=== PATIENT | female | born 1935 | race African-American/Black ===

== ENCOUNTER 2018-11-20 19:17 | Emergency (ER) | payer BC, MEDICARE ==
[~2018-11-20] VITALS: Ht 162.6 cm; Wt 54.0 kg
[~2018-11-20 19:17] MED LIST: HYDROCHLOROTHIAZIDE PO; KLUD20 PO; LEVO500T2 PO; LISINOPRIL; OMEP20CA4 PO; TRAM50TA3 PO; VITAMIN D PO
[2018-11-20] MEDS ORDERED: MAGNESIUM/ALUMINUM HYDROXIDE/SIMETHICONE 30ML UDC PO STA (21:07)
[2018-11-20] MEDS ORDERED: FAMOTIDINE 20MG/2ML VIAL IV STA (21:07)
[2018-11-20 21:52] LABS: BASOPHILS % 0.5 % (0.0-2.0); CHLORIDE 98 mEq/L (98-107); EOSINOPHILS % 0.1 % (0.0-5.0); HEMATOCRIT. 38.8 % (36.0-48.0); HEMOGLOBIN. 12.6 g/dL (12.0-16.0); LYMPHOCYTES % 17.4 % (20.0-50.0); MEAN CORPUSCULAR HEMOGLOBIN 25.6 pg (28.0-32.0); MEAN CORPUSCULAR VOLUME 78.6 fL (81.0-99.0); MEAN PLATELET VOLUME 10.4 fl (7.4-10.4); PLATELET 178 x1000/uL (130-400); RED BLOOD CELL COUNT 4.94 mill/uL (4.2-5.4); RED CELL DISTRIBUTION WIDTH 14.3 % (11.6-14.6)
[2018-11-20 21:54] LABS: INR 1.1; PROTHROMBIN TIME 11.6 sec (9.6-11.0)
[2018-11-20 22:03] LABS: CLARITY URINE CLEAR (CLEAR); COLOR URINE YELLOW (YELLOW); KETONES URINE 2+ (NEGATIVE); LEUKOCYTE ESTERASE URINE 2+ (NEGATIVE); NITRITE URINE NEGATIVE (NEGATIVE); OCCULT BLOOD URINE TRACE (NEGATIVE); PROTEIN URINE TRACE (NEGATIVE); SPECIFIC GRAVITY URINE 1.017 (1.005-1.030); UROBILINOGEN URINE 0.2 E.U./dL (0.2-1.0)
[2018-11-21 01:05] VITALS: BP 144/72
== END 2018-11-21 01:09 | disposition home or self-care (01) ==
LOC: ER 19:17 → CANBEDREQ 11-21 02:40
DX: R10.13 Epigastric pain (principal); R11.10 Vomiting, unspecified; I10 Essential (primary) hypertension; Z98.890 Other specified postprocedural states; Z79.899 Other long term (current) drug therapy
CPT/HCPCS: 36415; 71045; 74176; 80053; 81003; 83690; 84484; 85025; 85610; 86850; 86900; 86901; 93005; 96374; 99284; J3490

== ENCOUNTER 2021-01-23 20:39 | Emergency (ER) | payer BC ==
[~2021-01-23] VITALS: Ht 162.6 cm; Wt 45.0 kg
[~2021-01-23 20:39] MED LIST changes: -KLUD20 PO; +POTA20LI52 PO
[2021-01-23 23:08] LABS: CHLORIDE 102 mEq/L (98-107)
[2021-01-23 23:47] LABS: BASOPHILS % 0.7 % (0.0-2.0); EOSINOPHILS % 0.3 % (0.0-5.0); HEMATOCRIT. 34.8 % (36.0-48.0); HEMOGLOBIN. 11.5 g/dL (12.0-16.0); MEAN CORPUSCULAR HEMOGLOBIN 25.5 pg (28.0-32.0); MEAN CORPUSCULAR VOLUME 77.4 fL (81.0-99.0); MEAN PLATELET VOLUME 9.9 fl (7.4-10.4); MONOCYTES % 8.7 % (2.0-8.0); NEUTROPHILS % 75.3 % (40.0-76.0); PLATELET 236 x1000/uL (130-400); RED CELL DISTRIBUTION WIDTH 14.3 % (11.6-14.6)
[2021-01-24 00:44] LABS: CLARITY URINE CLEAR (CLEAR); COLOR URINE DARK YELLOW (YELLOW); KETONES URINE 1+ (NEGATIVE); LEUKOCYTE ESTERASE URINE NEGATIVE (NEGATIVE); NITRITE URINE NEGATIVE (NEGATIVE); OCCULT BLOOD URINE NEGATIVE (NEGATIVE); PROTEIN URINE NEGATIVE (NEGATIVE); SPECIFIC GRAVITY URINE 1.022 (1.005-1.030)
[2021-01-24] MEDS ORDERED: ACETAMINOPHEN 325MG TABLET PO ONE (01:15)
[2021-01-24] MEDS ORDERED: ACET650T37 MT (04:02)
[2021-01-24 04:15] VITALS: BP 114/63
[2021-01-24] MEDS ORDERED: ONDA4TAB5 MT (04:19)
== END 2021-01-24 04:40 | disposition home or self-care (01) ==
LOC: ER 23:57
DX: R10.9 Unspecified abdominal pain (principal); I10 Essential (primary) hypertension
CPT/HCPCS: 36415; 76705; 80053; 81003; 85025; 99284

== ENCOUNTER 2021-05-24 20:48 | Emergency (ER) | payer BC, MEDICARE ==
[~2021-05-24] VITALS: Ht 167.6 cm; Wt 45.0 kg
[~2021-05-24 20:48] MED LIST changes: +ACET650T37 MT; -LEVO500T2 PO; +ONDA4TAB5 MT
[2021-05-25] MEDS ORDERED: MORPHINE SULFATE 4 MG/ML CPJ (NOT FOR IM USE) IV STA (00:51)
[2021-05-25] MEDS ORDERED: ONDANSETRON HCL 4MG/2ML INJ IV STA (00:51)
[2021-05-25] MEDS ORDERED: SODIUM CHLORIDE 0.9% 1,000 ML IV ONE (01:00)
[2021-05-25 01:25] LABS: BASOPHILS % 0.8 % (0.0-2.0); EOSINOPHILS % 0.2 % (0.0-5.0); HEMATOCRIT. 31.1 % (36.0-48.0); LYMPHOCYTES % 7.9 % (20.0-50.0); MEAN CORPUSCULAR VOLUME 71.9 fL (81.0-99.0); MEAN PLATELET VOLUME 9.3 fl (7.4-10.4); MONOCYTES % 3.1 % (2.0-8.0); PLATELET 307 x1000/uL (130-400); RED BLOOD CELL COUNT 4.33 mill/uL (4.2-5.4); RED CELL DISTRIBUTION WIDTH 17.1 % (11.6-14.6)
[2021-05-25 01:29] LABS: CHLORIDE 104 mEq/L (98-107)
[2021-05-25] MEDS ORDERED: MORPHINE SULFATE 2 MG/ML CPJ (NOT FOR IM USE) IV SCH (01:30)
[2021-05-25] MEDS ORDERED: IOHEXOL-300 100 ML BOTTLE ONE (04:06)
[2021-05-25 06:08] VITALS: BP 168/85
== END 2021-05-25 06:24 | disposition home or self-care (01) ==
LOC: ER 20:48
DX: R10.9 Unspecified abdominal pain (principal); I10 Essential (primary) hypertension; Z98.890 Other specified postprocedural states
CPT/HCPCS: 36415; 71045; 74177; 80053; 83605; 83690; 85025; 96361; 96374; 96375; 99291; J2270; J2405; J7030; Q9967

== ENCOUNTER 2021-11-19 11:37 | Inpatient (IN) | payer BC ==
[~2021-11-19] VITALS: Ht 167.6 cm; Wt 49.9 kg
[2021-11-19 06:30] VITALS: BP 150/93
[~2021-11-19 11:37] MED LIST changes: +LEVO500T89 MT
[2021-11-19 12:48] LABS: CHLORIDE 109 mEq/L (98-107)
[2021-11-19 12:57] LABS: INR 1.1; PROTHROMBIN TIME 11.8 sec (9.6-11.0)
[2021-11-19 13:00] LABS: BASOPHILS % 1.1 % (0.0-2.0); EOSINOPHILS % 2.8 % (0.0-5.0); LYMPHOCYTES % 11.2 % (20.0-50.0); MEAN CORPUSCULAR HEMOGLOBIN 16.4 pg (28.0-32.0); MEAN CORPUSCULAR VOLUME 57.8 fL (81.0-99.0); MONOCYTES % 13.4 % (2.0-8.0); NEUTROPHILS % 71.5 % (40.0-76.0); PLATELET 386 x1000/uL (130-400); RED BLOOD CELL COUNT 3.79 mill/uL (4.2-5.4); RED CELL DISTRIBUTION WIDTH 23.6 % (11.6-14.6)
[2021-11-19 13:02] LABS: HEMOGLOBIN. 6.2 g/dL (12.0-16.0)
[2021-11-19 13:03] LABS: HEMATOCRIT. 21.9 % (36.0-48.0)
[2021-11-19 13:17] LABS: PLATELET ESTIMATE NORMAL
[2021-11-19] MEDS ORDERED: HYDROCODONE/ACETAMINOPHEN 5/325MG TABLET PO PRN (19:15)
[2021-11-19] MEDS ORDERED: LORAZEPAM 0.5MG TABLET PO PRN (19:15)
[2021-11-19] MEDS ORDERED: IPRATROPIUM/ALBUTEROL 0.5-3(2.5)MG/3ML NEB HHN PRN (19:15)
[2021-11-19] MEDS ORDERED: ONDANSETRON HCL 4MG/2ML INJ IV PRN (19:15)
[2021-11-19] MEDS ORDERED: DOCUSATE SODIUM 100MG CAPSULE PO PRN (19:15)
[2021-11-19] MEDS ORDERED: CLONIDINE 0.1MG TABLET PO PRN (19:15)
[2021-11-19] MEDS ORDERED: ACETAMINOPHEN 325MG TABLET PO PRN ×2 (19:15)
[2021-11-19 20:00] VITALS: BP 147/72
[2021-11-19 20:00] LABS: TOTAL IRON BINDING CAPACITY 391 ug/dL (250-450)
[2021-11-19 20:17] LABS: FOLIC ACID (FOLATE) SERUM > 20.00 ng/mL (>5.38)
[2021-11-19 20:19] LABS: FERRITIN 6 ng/mL (10-291)
[2021-11-19 20:24] LABS: VITAMIN B12 SERUM 471 pg/mL (211-911)
[2021-11-20] VITALS: BP 139/77
[2021-11-20 04:00] VITALS: BP 141/72
[2021-11-20 07:11] LABS: BASOPHILS % 0.7 % (0.0-2.0); EOSINOPHILS % 3.4 % (0.0-5.0); HEMATOCRIT. 27.1 % (36.0-48.0); LYMPHOCYTES % 23.8 % (20.0-50.0); MEAN CORPUSCULAR HEMOGLOBIN 17.8 pg (28.0-32.0); MEAN CORPUSCULAR VOLUME 60.6 fL (81.0-99.0); MEAN PLATELET VOLUME 9.3 fl (7.4-10.4); MONOCYTES % 12.8 % (2.0-8.0); NEUTROPHILS % 59.3 % (40.0-76.0); PLATELET 348 x1000/uL (130-400); RED BLOOD CELL COUNT 4.47 mill/uL (4.2-5.4); RED CELL DISTRIBUTION WIDTH 25.2 % (11.6-14.6)
[2021-11-20 07:26] LABS: CHLORIDE 109 mEq/L (98-107)
[2021-11-20 08:00] VITALS: BP 94/50
[2021-11-20 12:00] VITALS: BP 155/83
[2021-11-20] MEDS ORDERED: ASCO500C15 MT (12:57)
[2021-11-20] MEDS ORDERED: DOCU-138 MT (12:57)
[2021-11-20] MEDS ORDERED: FERR325T6 MT (12:57)
[2021-11-20] MEDS ORDERED: IRON SUCROSE COMPLEX 300 MG in SODIUM CHLORIDE 0.9% 250 ML IV SCH (15:00)
[2021-11-20 15:20] VITALS: BP 159/88
[2021-11-20 20:00] VITALS: BP 140/66
== END 2021-11-20 21:30 | disposition home or self-care (01) | DRG 812 ==
LOC: ER 12:02 → 8WST 15:08 → ENRESERV 16:04
PROVIDERS: ADMIT Internal Medicine; ATTEND Internal Medicine
PROC: 30233N1 Transfusion of Nonautologous Red Blood Cells into Peripheral Vein, Percutaneous Approach (ICD-10-PCS; principal; 2021-11-19)
DX: D50.9 Iron deficiency anemia, unspecified (principal); I10 Essential (primary) hypertension; Z82.49 Family history of ischemic heart disease and other diseases of the circulatory system; Z79.899 Other long term (current) drug therapy
CPT/HCPCS: 36415; 80048; 80053; 82607; 82728; 82746; 83540; 83550; 85018; 85025; 86850; 86900; 86920; 99291; J7050; P9016